=== PATIENT | female | born 1980 | race African-American/Black ===

== ENCOUNTER 2017-07-22 21:59 | Emergency (ER) | payer BC ==
[~2017-07-22] VITALS: Ht 149.9 cm; Wt 99.8 kg
[~2017-07-22 21:59] MED LIST: FLONASE16 G1 BOTH NARES; IRON325 MG PO; PRENATAL TABLE1 EAC3 PO; TYLENOL WITH C1 EACH PO
[2017-07-22 22:56] LABS: ALBUMIN 3.9 g/dL (3.2-4.8)
[2017-07-22 22:57] LABS: CHLORIDE 107 mEq/L (99-109); MCH 21.3 PG (29.0-34.0); MCHC 30.3 G/DL (30.0-36.0); MCV 70.4 FL (83-99); POTASSIUM 3.5 mEq/L (3.7-5.4); RBC DIS.WIDTH-CV 16.9 % (11.8-14.6); RBC DIS.WIDTH-SD 42.4 % (39-53); RED BLOOD COUNT 4.69 M/uL (3.80-5.20); SODIUM 138 mEq/L (136-147); WHITE BLOOD COUNT 12.5 K/uL (4.1-10.2)
[2017-07-22 22:59] LABS: GLUCOSE 95 mg/dL (70-99); TOTAL PROTEIN 7.4 g/dL (6.4-8.3)
[2017-07-22 23:01] LABS: TOTAL BILIRUBIN 0.3 mg/dL (0.0-1.0)
[2017-07-22 23:02] LABS: ALKALINE PHOSPHATASE 121 IU/L (3-129)
[2017-07-22 23:03] LABS: CREATININE 0.8 mg/dL (0.6-1.3); GFR ESTIMATE (CALCULATED) > 59 mL/min/
[2017-07-22 23:04] LABS: AST (GOT) 13 IU/L (2-34); UREA NITROGEN (BUN) 12 mg/dL (9-23)
[2017-07-22 23:06] LABS: ALT (GPT) 10 IU/L (3-49)
[2017-07-22 23:06] LABS: APPEARANCE SL.HAZY ((CLEAR)); BILIRUBIN NEGATIVE; BLOOD NEGATIVE; COLOR YELLOW ((YELLOW)); GLUCOSE (STRIP) NEGATIVE; KETONES NEGATIVE; LEUKOCYTES NEGATIVE; NITRITE NEGATIVE; PROTEIN (STRIP) 30; SPECIFIC GRAVITY 1.032 (1.000-1.030)
[2017-07-22 23:11] LABS: BACTERIA NONE SEEN /HPF; EPITHELIAL CELLS 1+ /HPF; MUCUS TRACE /LPF; RED BLOOD CELLS 0-5 /HPF (0-5); UCUL ADDED? NO; WHITE BLOOD CELLS 0-5 /HPF (0-5)
[2017-07-22 23:19] LABS: QUANTITATIVE HCG < 4.0 MIU/ML
[2017-07-22 23:44] LABS: PLAT.SUFFICIENCY ADEQUATE; PLATELET COUNT 376 K/uL (156-360)
[2017-07-23] MEDS ORDERED: PYRIDIUM100 MG PO (05:06)
[2017-07-23 05:24] VITALS: BP 106/46
[2017-07-23] MEDS ORDERED: ZOFRAN4 MG PO (05:26)
== END 2017-07-23 05:29 | disposition home or self-care (01) ==
LOC: EME 21:59
DX: R10.31 Right lower quadrant pain (principal); R30.0 Dysuria; M54.5 Low back pain; R50.9 Fever, unspecified; R11.0 Nausea; R82.99 Other abnormal findings in urine; D72.829 Elevated white blood cell count, unspecified; Z90.49 Acquired absence of other specified parts of digestive tract
CPT/HCPCS: 74177; 80053; 81003; 84702; 85027; 99281; 99285; J1885; J7030